=== PATIENT | male | born 2005 | race African-American/Black ===

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

== ENCOUNTER 2025-05-02 22:19 | Emergency (ER) | payer SELFPAY ==
[2025-05-02] MEDS ORDERED: Ketorolac Tromethamine 30 MG (1 mL) VIAL ONE (23:23)
== END 2025-05-02 23:33 | disposition home or self-care (01) ==
LOC: CSHERS 22:19
DX: J06.9 Acute upper respiratory infection, unspecified (principal); B97.89 Other viral agents as the cause of diseases classified elsewhere
CPT/HCPCS: 87428; 96372; 99284; J1885